=== PATIENT | female | born 1995 | race Caucasian/White ===

== ENCOUNTER 2024-01-20 17:14 | Emergency (ER) | payer OTHER ==
[~2024-01-20] VITALS: Ht 162.6 cm; Wt 76.2 kg
[2024-01-20 17:22] VITALS: BP 109/77; PULSE 78; RESP 18; TEMP 99.6; O2SAT 100
[2024-01-20 17:57] LABS: APPEARANCE,URINE CLEAR (CLEAR); BILIRUBIN,URINE NEGATIVE (NEGATIVE); BLOOD, URINE TRACE-I (NEGATIVE); COLOR,URINE YELLOW (YELLOW); LEUKOCYTE ESTERASE ,URINE NEGATIVE (NEGATIVE); NITRITE, URINE NEGATIVE (NEGATIVE); PROTEIN,URINE NEGATIVE (NEGATIVE); UGLUCOSE NEGATIVE (NEGATIVE); UROBILINOGEN,URINE 0.2 EU/dL (0.2 - 1)
[2024-01-20] MEDS: DEXT 5% /NACL 0.9% 1,000 ML IV ONE (18:10)
[2024-01-20 18:45] LABS: BASOPHILS % (AUTO) 0.1 % (0.0-2.0); EOSINOPHILS # (AUTO) 0.1 K/uL (0-0.4); EOSINOPHILS % (AUTO) 1.2 % (0.0-4.0); HEMOGLOBIN 13.1 g/dL (12.0-16.0); LYMPHOCYTES # (AUTO) 2.5 K/uL (2.5-16.5); LYMPHOCYTES % (AUTO) 24.7 % (20.5-51.1); MEAN CORPUSCULAR HEMOGLOBIN 28 pg (27-31); MEAN CORPUSCULAR HGB CONC 34 g/dL (33-37); MEAN CORPUSCULAR VOLUME 82.2 fL (80-94); MONOCYTES # (AUTO) 0.6 K/uL (0.8-1.0); MONOCYTES % (AUTO) 5.9 % (1.7-9.3); NEUTROPHILS # (AUTO) 6.9 K/uL (1.8-7.7); NEUTROPHILS % (AUTO) 68.1 % (42.2-75.2); PLATELET COUNT (AUTO) 329 K/uL (140-450); RED BLOOD CELL COUNT(AUTO) 4.74 MIL/uL (4.20-5.40); RED CELL DISTRIBUTION WIDTH 14.2 % (11.6-13.7); WHITE BLOOD COUNT (AUTO) 10.1 K/uL (4.8-10.8)
[2024-01-20 19:00] LABS: ANION GAP 14.5 (8-16); CARBON DIOXIDE 25.9 mmol/L (21-32); CREATININE 0.6 mg/dL (0.6-1.3); POTASSIUM 3.4 mmol/L (3.5-5.1)
[2024-01-20 19:06] LABS: ALBUMIN 3.9 g/dL (3.4-5.0); BILIRUBIN,DIRECT 0.1 mg/dL (0.0-0.3); TOTAL BILIRUBIN 0.3 mg/dL (0.0-1.0); TOTAL PROTEIN, SERUM 8.1 g/dL (6.4-8.2)
[2024-01-20] MEDS ORDERED: DOXY1TCP PO (19:18)
[2024-01-20 19:22] VITALS: O2SAT 100
[2024-01-20 19:37] VITALS: BP 121/81; PULSE 81; RESP 16; TEMP 98.1; O2SAT 99
== END 2024-01-20 19:37 | disposition home or self-care (01) ==
LOC: MED 17:14
DX: O21.9 Vomiting of pregnancy, unspecified (principal); O26.891 Other specified pregnancy related conditions, first trimester; R19.7 Diarrhea, unspecified; R79.89 Other specified abnormal findings of blood chemistry; Z3A.08 8 weeks gestation of pregnancy; Z79.899 Other long term (current) drug therapy
CPT/HCPCS: 36415; 80048; 80076; 81003; 81025; 83690; 85025; 96360; 99284; J7042

== ENCOUNTER 2024-02-04 18:02 | Emergency (ER) | payer OTHER ==
[~2024-02-04] VITALS: Ht 157.5 cm; Wt 74.0 kg
[~2024-02-04 18:02] MED LIST: DOXY1TCP PO
[2024-02-04 18:40] VITALS: BP 137/83; PULSE 76; RESP 18; TEMP 98; O2SAT 98
== END 2024-02-04 19:16 | disposition home or self-care (01) ==
LOC: MED 18:02
DX: O26.891 Other specified pregnancy related conditions, first trimester (principal); R13.10 Dysphagia, unspecified; Z3A.10 10 weeks gestation of pregnancy; Z79.899 Other long term (current) drug therapy
CPT/HCPCS: 99282

== ENCOUNTER 2024-05-10 23:15 | Observation (INO) | payer OTHER ==
[~2024-05-10] VITALS: Ht 162.6 cm; Wt 75.3 kg
[2024-05-11] MEDS ORDERED: PREN-537 PO (00:01)
[2024-05-11 00:09] VITALS: BP 122/75; PULSE 83; RESP 18; TEMP 98.5
== END 2024-05-11 04:45 | disposition home or self-care (01) ==
LOC: MLD 23:15
PROVIDERS: ADMIT Obstetrics & Gynecology; ATTEND Obstetrics & Gynecology
DX: O46.92 Antepartum hemorrhage, unspecified, second trimester (principal); Z3A.24 24 weeks gestation of pregnancy
CPT/HCPCS: 76817; G0378; Q0092